=== PATIENT | male | born 1985 | race African-American/Black ===

== ENCOUNTER 2023-07-28 12:07 | Emergency (ER) | payer MEDICAID, OTHER ==
[~2023-07-28] VITALS: Ht 185.4 cm; Wt 149.1 kg
[2023-07-28 15:27] VITALS: BP 116/68; PULSE 77; RESP 16; TEMP 97.9; O2SAT 97
[2023-07-28] MEDS ORDERED: TRAM50TA2 PO (16:34)
== END 2023-07-28 16:39 | disposition home or self-care (01) ==
LOC: ER 12:07
DX: M75.42 Impingement syndrome of left shoulder (principal); M25.512 Pain in left shoulder; Z88.1 Allergy status to other antibiotic agents; Z88.6 Allergy status to analgesic agent
CPT/HCPCS: 73030